=== PATIENT | male | born 1965 | race Caucasian/White ===

== ENCOUNTER 2023-08-25 16:16 | Emergency (ER) | payer OTHER, SELFPAY ==
--- NOTE | ~2023-08-25 | XR_ITS ---
EXAMINATION: XR FINGER, LEFT CLINICAL INFORMATION: Fifth digit pain. Swelling. Question foreign body. COMPARISON: None available. TECHNIQUE: 3 radiographs of the left fifth digit. FINDINGS: There is no fracture or dislocation. Joint spaces appear maintained. The soft tissue overlying the distal phalanx of the fifth digit appear mildly swollen. No radiopaque foreign object is identified within the soft tissues. XR/XR finger LT min 2V IMPRESSION: No fracture or dislocation. No radiopaque foreign object.
[2023-08-25 16:39] VITALS: BP 164/87; PULSE 68; RESP 18; TEMP 36.1; O2SAT 96; BMI 31.3
--- NOTE | 2023-08-25 16:43 | ED.GENADULT ---
HPI - General Adult General Chief complaint: Extremity Problem Stated complaint: finger issue Time Seen by Provider: 08/25/23 19:58 Source: patient Mode of arrival: ambulatory Limitations: no limitations History of Present Illness HPI narrative: Patient is a 58-year-old male, right-hand dominant, who presents emergency department for evaluation of a lesion to his left 5th digit along the finger pad. Reports onset of pain weeks ago. 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 He at 1st had a very small punctate lesion. It has continued to grow in size since then, it is very painful with a throbbing sensation. He reports that each time that the lesion opens if leads, does not stop bleeding until pressure is applied. He denies any pus-like drainage from area. He is able to flex and extend the digit without difficulty though it does increase pain. He denies any additional skin lesions or wounds Related Data Previous Rx's ?Medication ?Instructions ?Recorded cephalexin 500 mg capsule 500 mg PO TID 7 days #21 caps 08/25/23 Allergies Allergy/AdvReac Type Severity Reaction Status Date / Time No Known Allergies Allergy Verified 08/25/23 16:41 Review of Systems Review of Systems: Yes all other systems are reviewed and are negative [facility] Past Medical History Attestation statement: The following information was validated with the patient. Source: old records reviewed Social History Social History Advance Directives: No Advance Directives Information Provided: No Do you have a plan to hurt others: No Plan Physical Exam ED Vital Signs: Vital Signs - 24 hr 08/25/23 16:39 08/25/23 20:20 08/25/23 22:24 Temperature 97 F 98.3 F 98.1 F Pulse Rate 68 62 61 Respiratory Rate 18 20 16 Blood Pressure 164/87 H 139/96 H 147/96 H Pulse Oximetry 96 96 97 Oxygen Delivery Method Room Air Room Air Room Air 08/25/23 22:24 Temperature 98.1 F Pulse Rate 61 Respiratory Rate 16 Blood Pressure 147/96 H Pulse Oximetry 97 Oxygen Delivery Method Room Air BMI result Body Mass Index 31.3 Appearance: Alert.?Oriented to person, place and time. No acute distress.?Normal affect. Neck: Normal inspection.? Neck supple.?? CVS: Heart sounds normal. Normal heart rate and rhythm.? Pulses normal.?? Respiratory: No respiratory distress.? Lung sounds clear to auscultation bilaterally?? Skin: Skin warm and dry.? Normal skin color.? Left 5th digit granuloma Extremities: No extremity edema Neuro: Moves all extremities spontaneously. Sensation intact bilaterally. Ambulates with normal steady gait. Course Course Course Narrative: RME performed by Vilma Coleman PA-C. Patient is a 58 year old assigned male at presenting to the emergency department with left 5th finger issues. Patient states he has had a growth that is worsening to his left 5th finger and it bleeds whenever there isn't direct pressure on it. Patient states he went to an urgent care and they declined to do anything about it. Detailed physical exam and review of systems are deferred to the senior clinician. Patient placed back in the waiting room pending room availability. Medications Administered Discontinued Medications Generic Name Dose Route Start Last Admin Trade Name Freq PRN Reason Stop Dose Admin Cephalexin HCl 500 mg 08/25/23 21:07 08/25/23 21:15 Cephalexin 500 Mg Capsule PO 08/25/23 21:08 500 mg ONCE ONE Administration Diphtheria/Tetanus/Acell Pertussis 0.5 ml 08/25/23 21:07 08/25/23 21:15 Diphth,Pertus(Acell),Tet Adult 0.5 Ml Syringe IM 08/25/23 21:08 0.5 ml .ONCE ONE Administration Medical Decision Making Medical Decision Making MDM Narrative: Patient is a 58-year-old male who presents emergency department for evaluation of a lesion to the left 5th digit long finger pad. Examination is most concerning for a granuloma based on history and physical exam. XR was obtained and is without evidence of acute fracture or retained foreign body. His tetanus vaccination was updated. He has provided with a first dose of antibiotic and started on a prophylactic course of antibiotics. Advised outpatient follow-up with hand specialist. Discussed worrisome signs and symptoms that would warrant re-evaluation in the emergency department. All questions answered. Stable for discharge Differential Diagnosis Differential Diagnoses: The differential diagnosis associated with the presentation includes (Granuloma, hemangioma, abscess) Independent Interpretation I performed an independent interpretation of an: Plain X-Ray (No foreign body or fracture) Radiology Impression Discussion of test interpretation with radiology: I have reviewed the radiologist's reading. Radiologist Impression: XR/XR finger LT min 2V IMPRESSION: No fracture or dislocation. No radiopaque foreign object. Prescription Management I considered prescription management with: Pain Medication and Antibiotic Discharge Plan Discharge Clinical Impression: Lesion of finger Patient Disposition: Home, Self-Care Additional Instructions: As discussed, I recommend that you follow-up with the hand specialist, Dr. Geiger. I have provided her contact information, please call their office first thing tomorrow morning to arrange for follow-up. X-ray does not show any evidence of a radiopaque foreign body in the finger or abnormality to the bone. The appearance of this lesion today is concerning for a granuloma A course of prophylactic antibiotics has been prescribed, please complete the entire course unless advised to discontinue by a doctor Prescriptions: New cephalexin 500 mg capsule 500 mg PO TID 7 Days Qty: 21 0RF Referrals: Jonny Jorgensen III, MD [Primary Care Provider] - Haven Geiger MD [Physician] - Interventions: ED Discharge Assessment Last Done: 08/25/23 22:24 Discharge Date/Time: 08/25/23 22:25 Print Language: Indonesian
[2023-08-25 20:20] VITALS: BP 139/96; PULSE 62; RESP 20; TEMP 36.8; O2SAT 96
[2023-08-25] MEDS: cephALEXin 500 MG CAPSULE PO (21:15)
[2023-08-25] MEDS: Diphth,Pertus(ACell),Tet Adult 0.5 ML SYRINGE IM (21:15)
[2023-08-25 22:24] VITALS: BP 147/96; PULSE 61; RESP 16; TEMP 36.7; O2SAT 97
== END 2023-08-25 22:25 | disposition home or self-care (01) ==
PROVIDERS: Emergency Provider Emergency Medicine; PCP Internal Medicine
DX: S61.217A Laceration without foreign body of left little finger without damage to nail, initial encounter (principal); M79.645 Pain in left finger(s); W26.8XXA Contact with other sharp object(s), not elsewhere classified, initial encounter; Y93.89 Activity, other specified; Y92.89 Other specified places as the place of occurrence of the external cause; Y99.8 Other external cause status; Z23 Encounter for immunization
CPT/HCPCS: 73140; 90471; 90715; 99283; 99284

== ENCOUNTER 2023-09-08 10:56 | Outpatient (REF) | payer OTHER, SELFPAY ==
--- NOTE | ~2023-09-08 | XR_ITS ---
EXAMINATION: XR HAND, LEFT CLINICAL INFORMATION: Pain in the left hand. Attention small finger. COMPARISON: X-rays of the left hand in small finger 08/25/2023 TECHNIQUE: PA, lateral, and oblique views of the left hand. FINDINGS: The bones and soft tissues are normal. No fracture. Alignment is anatomic. Joint spaces are maintained. No erosions or soft tissue calcifications. XR/XR hand LT min 3V IMPRESSION: Normal left hand.
== END 2023-09-08 10:57 | disposition home or self-care (01) ==
LOC: HO.HOSX 10:56
PROVIDERS: PCP Internal Medicine
DX: M79.642 Pain in left hand (principal); R22.32 Localized swelling, mass and lump, left upper limb
CPT/HCPCS: 73130

== ENCOUNTER 2023-09-08 10:56 | Outpatient (AMB) | payer OTHER, SELFPAY ==
--- NOTE | 2023-09-08 11:02 | A.OFFVIS_ITS ---
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 Patient reports lesion has been there for approximately 5 weeks. Reports size increase and discoloration. Denies itchiness or irritation. Patient states he has been changing band aids throughout the day. Patient also reports it bleeds if pressure is applied. 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 The patient reports that he was previously evaluated at both a walk-in clinic in the emergency department, where he reports that providers were not comfortable with any potential drainage of the area, and he was referred to a hand specialist. Today, the patient reports that the lesion has continued to grow, and still bleeds whenever it is touched. The patient reports serous discharge from the lesion as well, but no pus or purulence. He reports pain in the area of the lesion. No other acute concerns or complaints at this time. REPLACED BY [facility] Social History (Updated 09/08/23 @ 11:05 by LAVERN Thomas) Current occupational status: employed Current occupation: right handed, landscaping Review of Systems Const All systems reviewed & are unremarkable except as noted in HPI and below Physical Exam Vital Signs: BMI result Body Mass Index 31.1 Extrem Other: Patient is alert, oriented, and in no acute distress. Neuro: Median, ulnar, radial nerves motor and sensory intact and sensation is normal to the tips of all digits. Vascular: Cap refill brisk Pain: Patient reports mild to moderate tenderness to palpation of the distal phalanx of the left small finger about the lesion. No other tenderness to palpation ROM: Patient is able to make a closed fist Skin: Approximately 1 cm circular lesion noted on the volar aspect of the distal small finger, lesion is red with a surrounding area of macerated-appearing skin. General: No ecchymosis, erythema, or evidence of infection. Psych: Appears grossly normal Affect normal Attitude cooperative Results Reviewed Results Reviewed: X-rays obtained in the office today and independently reviewed by me, Gonzalo Singh PA-C, demonstrate soft tissue prominence of the volar aspect of the distal L small finger. No fracture or acute bony abnormality of the left hand, no evidence of osteomyelitis. Assessment & Plan Assessment & Plan (1) Subcutaneous mass of finger of left hand: Code(s): R22.32 - Localized swelling, mass and lump, left upper limb Category: Medical Plan 1. Cutaneous mass of left small finger Date of injury approximately 5 weeks ago Mass is growing, but there is currently no evidence of active infection (erythema, purulence, etc) Patient is informed that he should be seen with Dr. Geiger for evaluation of this condition, and discussion of treatment options Patient is amenable to this plan Patient is advised to keep the area clean and dry in the interim. Patient will follow up on Friday with myself, with Dr. Geiger in office, for evaluation discussion of treatment options Orders: Orders XR hand LT min 3V Today M79.642 - Pain in left hand Medications: Discontinued cephalexin Discontinued Reason: Patient Completed Course 500 mg PO TID 7 days 21 caps 0RF Coding Level of Care Code New Pt Level 3 (99317) Diagnoses Subcutaneous mass of finger of left hand R22.32
[2023-09-08 11:04] VITALS: BMI 31.1
== END 2023-09-08 12:16 | disposition home or self-care (01) ==
PROVIDERS: PCP Internal Medicine
DX: R22.32 Localized swelling, mass and lump, left upper limb (principal)
CPT/HCPCS: 99203

== ENCOUNTER 2023-09-10 14:23 | Outpatient (AMB) | payer OTHER, SELFPAY ==
--- NOTE | 2023-09-10 14:26 | A.OFFVIS_ITS ---
Intake Visit Reasons: OV-lesion to his left 5th digit-F/U Intake Note: Bebeto is a 58 year old right hand dominant male who presents today as a new patient for lesion on the left 5th digit. Patient reports he is still bleeding and it is still a little purple. Denies numbness and tingling. He mentions that he has pain sound the lesion. Allergies No Known Allergies Allergy (Verified 09/10/23 14:28) HPI HPI OV-lesion to his left 5th digit-F/U: Details: Patient is a 58-year-old male who presents for evaluation of lesion on his left small finger, present for approximately 5 weeks. 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 The patient reports that he was previously evaluated at both a walk-in clinic in the emergency department, where he reports that providers were not comfortable with any potential drainage of the area, and he was referred to a hand specialist. Today, the patient reports that the lesion has continued to grow, and still bleeds whenever it is touched. The patient reports serous discharge from the lesion as well, but no pus or purulence. He reports pain in the area of the lesion. No other acute concerns or complaints at this time. Patient presents today for repeat evaluation with Dr. Geiger in the office to determine treatment course. [facility] Social History (Updated 09/10/23 @ 14:28 by Rno Oliva) Alcohol intake: current Alcohol intake frequency: holidays/special occasions only Patient Tobacco Use Status: Never used Tobacco Current occupational status: employed Current occupation: right handed, landscaping Review of Systems Const All systems reviewed & are unremarkable except as noted in HPI and below Physical Exam Extrem Other: Patient is alert, oriented, and in no acute distress. Neuro: Median, ulnar, radial nerves motor and sensory intact and sensation is normal to the tips of all digits. Vascular: Cap refill brisk Pain: Patient reports mild to moderate tenderness to palpation of the distal phalanx of the left small finger about the lesion. No other tenderness to palpation ROM: Patient is able to make a closed fist Skin: Approximately 1 cm circular lesion noted on the volar aspect of the distal small finger, lesion is red with a surrounding area of macerated-appearing skin. General: No ecchymosis, erythema, or evidence of infection. Psych: Appears grossly normal Affect normal Attitude cooperative Assessment & Plan Assessment & Plan (1) Pyogenic granuloma: Code(s): L98.0 - Pyogenic granuloma Category: Medical (2) Subcutaneous mass of finger of left hand: Code(s): R22.32 - Localized swelling, mass and lump, left upper limb Category: Medical Plan 1. Pyogenic granuloma of left small finger After consultation and discussion with Dr. Geiger, who was available to see the patient in the office today, a joint treatment plan was formed I educated the patient about the condition. I discussed both operative and nonoperative treatment options. The patient would like to proceed with surgery. The risks and benefits of operative treatment were discussed with the patient and the patient wishes to proceed with surgery. These risks include, but are not limited to, risk of damage to blood vessels, nerves, tendons, infection, recurrence, incomplete relief of preoperative symptoms, persistent pain, possible need for further surgery, and the risks associated with regional blocks and/or anesthesia. Plan is to take the patient to the operating room on 09/15/2023, for the following procedures: 1. Excision of pyogenic granuloma left small finger All of the preoperative paperwork including the consent was discussed today. All of the patient's questions were answered in the clinic today. The patient understands that they will be in contact with our surgical resident to discuss scheduling their procedure. Patient denies diabetes, blood thinners, asthma, heart issues, lung issues, kidney issues, or current smoking. Coding Level of Care Code Est Pt Level 4 (52088) Diagnoses Pyogenic granuloma L98.0 Subcutaneous mass of finger of left hand R22.32
== END 2023-09-10 15:12 | disposition home or self-care (01) ==
PROVIDERS: PCP Internal Medicine
DX: L98.0 Pyogenic granuloma (principal); R22.32 Localized swelling, mass and lump, left upper limb
CPT/HCPCS: 99214

== ENCOUNTER → 2023-09-10 14:23 | Outpatient (BNVA) | payer OTHER, SELFPAY | PROVIDERS: PCP Internal Medicine ==

== ENCOUNTER 2023-09-15 09:25 | Day surgery (SDC) | payer OTHER, SELFPAY ==
--- NOTE | 2023-09-11 15:12 | HO.ANESPROP2 ---
Documented by User: Sheyla Syed NP 09/11/23 15:13 HPI - Anesthesia Eval Consult details Narrative: 58yo M for Left Small Finger Soft Tissue Excision Mass PMFSH Active Problems Active Problems: All Active Problems Subcutaneous mass of finger of left hand (Acute) Social History Social History Alcohol intake: current Alcohol intake frequency: holidays/special occasions only Patient Tobacco Use Status: Never used Tobacco Use of substances other than those prescribed or required for medical reasons: No Are you DNR?: No Advance Directives: No Advance Directives Information Provided: Yes Current occupational status: employed Current occupation: right handed, landscaping Meds Allergies Allergy/AdvReac Type Severity Reaction Status Date / Time No Known Allergies Allergy Verified 09/10/23 14:28 Home Medications ?Medication ?Instructions ?Recorded ?Confirmed ?Last Taken ?Type No Known Home Meds 09/10/23 09/10/23 Unknown History Assessment and Plan Assessment Anesthesia Assessment: Chart Reviewed Documented by User: Chantel Lou MD 09/15/23 10:43 PMFSH Family History Family history of problems with anesthesia: No Surgical History History of Problems with Anesthesia: No Social History Social History Alcohol intake: current Alcohol intake frequency: holidays/special occasions only Patient Tobacco Use Status: Never used Tobacco Use of substances other than those prescribed or required for medical reasons: No Are you DNR?: No Advance Directives: No Advance Directives Information Provided: Yes Current occupational status: employed Current occupation: right handed, landscaping Meds Allergies Allergy/AdvReac Type Severity Reaction Status Date / Time No Known Allergies Allergy Verified 09/10/23 14:28 Home Medications ?Medication ?Instructions ?Recorded ?Confirmed ?Last Taken ?Type No Known Home Meds 09/10/23 09/10/23 Unknown History Exam Airway Mallampati Class: II TM Dist: >3cm Neck ROM: Full Heart: rrr Lungs: cta Assessment and Plan Assessment Anesthesia Assessment: Anesthesia Plan Discussed Final Anesthetic Review Family History of Problems with Anesthesia: No History of Problems with Anesthesia: No NPO: Yes ASA Class: I Final Preanesthetic Review: No Changes in Pt Med Stat, Meds/Allgs Chart Reviewed, Consent Obtained/Reviewed and Anes Risks/Benef Reviewed Patient Risk: Low Procedure Risk: Low Anesthetic Plan Anesthetic Plan: MAC: Disposition: Standard PACU
--- NOTE | 2023-09-15 09:24 | MHC.SHP ---
Pre-Procedural Eval Section A - 24 Hr Update-Section A only Date of Service: 09/15/23 The patient is an INPATIENT: No Changes since office visit: No Cold of Flu in the past 2 weeks, No New Medical Problems, No Changes in Medication and No Patient answered all questions The patient has been examined within 24 hours of the surgical procedure. The History & Physical has been completed within 30 days and I have reviewed it.: Yes Section B - Complete if H&P > 30 days Chief Complaint: Localized swelling, mass and lump, left upper limb Allergies: Allergies Allergy/AdvReac Type Severity Reaction Status Date / Time No Known Allergies Allergy Verified 09/10/23 14:28 Plan I have reviewed the history and physical and performed a pertinent physical examination on my patient. No changes have occurred unless specified. Time Spent With Patient Time: Total time managing care of this patient today ____ minutes.
--- NOTE | 2023-09-15 09:25 | W.PM.OPN ---
Operative Note Operative Note Date of Service: 09/15/23 Narrative: Operative Note Narrative: Preop diagnosis: 1. Left small finger soft tissue mass, consistent with a pyogenic granuloma Postop diagnosis: Same Procedure: 1. Left small finger soft tissue mass excisional biopsy 2. Left ulnar nerve block Surgeon: Haven Geiger MD Nail Technician Teacher: None Anesthesia: Digital block plus MAC Findings: [place]man friable soft tissue mass measuring about a cm in diameter most consistent with a pyogenic granuloma perforating through the skin of the pad of the left small finger. This left an approximately 1 cm diameter wound where the mass push through the skin. There is already evidence of granulation tissue and early epithelialization of this wound bed. Implants: None Tourniquet time: Finger tourniquet applied for fewer than 30 minutes EBL: 5.0 ml Specimen: Left small finger soft tissue mass sent for histopathology Drains: None Complications: None Disposition: Brought to the recovery room in stable condition Plan: Follow-up in 10-14 days for wound check, suture removal and to check pathology Indications: The patient is a 58 year old man with a left small finger soft tissue mass most consistent with a pyogenic granuloma . The risks and benefits of operative treatment, including but not limited to risk of damage to blood vessels, nerves, tendons, infection, recurrence, persistent pain or numbness, incomplete resolution of preoperative symptoms, or need for further surgery were discussed with the patient and they wished to proceed with surgery. Procedure: Once consent was obtained patient was brought back to the operating suite and placed in the operating table in a supine position. . Perioperative antibiotics and anesthesia was administered by the anesthesia team. I performed a digital block of the small finger in the operating room using some 1% lidocaine with epinephrine. A finger tourniquet was applied to the base of the left small finger for fewer than 30 minutes. Once assured that it had a good block I used a [place] elevator and some iris scissors to carefully dissect about the 1 cm diameter pink friable mass in the pad of the left small finger. There was a small feeder vessel which was identified and cauterized using bipolar electrocautery. The wound itself was pretty good size measuring almost 1 cm in diameter, where the mass push its way through the skin. It looks like he has had early granulation tissue and already started to have some epithelialization in the proximal aspect of wound. I did debride the circumferential superficial skin at the edges of the wound using tenotomy scissors. The wound was then copiously irrigated with normal saline. At this point the finger tourniquet was removed and hemostasis obtained with a brief period of local pressure and bipolar electrocautery. The wound was again copiously irrigated with normal saline. No sutures were placed. Again he already appears to have early epithelialization of the wound bed. I believe this will be best treated with local wound care. A sterile dressing was applied. The patient appears to have tolerated the procedure well and with no complications. All digits were well vascularized conclusion of the case.
[2023-09-15 09:46] VITALS: BP 155/88; PULSE 62; RESP 16; TEMP 37.1; O2SAT 96; BMI 30.8
[2023-09-15] MEDS: Lactated Ringers 1,000 ML 100 ML IVCONT (10:02)
[2023-09-15 12:00] VITALS: BP 156/75; PULSE 60; RESP 18; TEMP 36.4; O2SAT 95
[2023-09-15 12:15] VITALS: BP 146/85; PULSE 56; RESP 18; O2SAT 95
== END 2023-09-15 12:58 | disposition home or self-care (01) ==
PROVIDERS: PCP Internal Medicine; Visit Provider Orthopaedic Surgery
PROC: (CPT 11421; principal; 2023-09-15 10:50)
DX: D18.01 Hemangioma of skin and subcutaneous tissue (principal); M79.645 Pain in left finger(s); L98.0 Pyogenic granuloma
CPT/HCPCS: 11421; 88307; J0131; J0690; J2250; J2704; J3010

== ENCOUNTER → 2023-09-15 09:25 | Outpatient (BNV) | payer OTHER, SELFPAY | PROVIDERS: PCP Internal Medicine; Visit Provider Orthopaedic Surgery | DX: R22.32 Localized swelling, mass and lump, left upper limb (principal); L98.0 Pyogenic granuloma | CPT/HCPCS: 26115 ==

== ENCOUNTER 2023-09-23 14:26 | Outpatient (AMB) | payer OTHER, SELFPAY ==
--- NOTE | 2023-09-23 14:30 | A.OFFVIS_ITS ---
Vital Signs 09/23/23 14:33 Handedness Right Intake Visit Reasons: PO/wound check - LT 5th mass exc 09/15/23 AR Intake Note: Bebeto is a 58 year old right hand dominant male who presents today post operatively s/p left 5th mass excision done 09/15/[address] Geiger. Patient reports he has throbbing pain that is intermittent. He assumes this is normal due to the surgery being recent. He says if he lays his hand a certain way he does get mild numbness. He has been taking ibuprofen to reduce swelling. He claims there was a biopsy done on mass removed and he would like to discuss the findings. Dressing removed in office, site of excison appears macerated. Allergies No Known Allergies Allergy (Verified 09/23/23 14:36) HPI HPI PO/wound check - LT 5th mass exc 09/15/23 AR: Details: Patient is a 58-year-old male who presents for postoperative evaluation and wound check of left small finger pyogenic granuloma excision, DOS 09/15/[address] Geiger. Today, the patient reports that he is feeling much better, and then he does not have any significant pain at the surgery site. The patient in quires as to the findings on the surgical specimen, stating that his is very concerned that this mass may have been cancerous. The patient reports no increased pain, no increased swelling, no increased erythema, or any discharge from the area. The patient does report that he feels his left small finger has become slightly stiff due to being in the dressing. No other acute complaints or concerns at this time. [facility] Medical History (Updated 09/23/23 @ 14:36 by SOCO Tran) Subcutaneous mass of finger of left hand Social History Alcohol intake: current Alcohol intake frequency: holidays/special occasions only Patient Tobacco Use Status: Never used Tobacco Current occupational status: employed Current occupation: right handed, landscaping Review of Systems Const All systems reviewed & are unremarkable except as noted in HPI and below Physical Exam Extrem Other: Patient is alert, oriented, and in no acute distress. Neuro: Median, ulnar, radial nerves motor and sensory intact and sensation is normal to the tips of all digits. Vascular: Cap refill brisk Pain: Patient reports no tenderness to palpation about the left small finger ROM: With encouragement, patient is able to make a closed fist and extend fingers fully Skin: Surgery site on the distal aspect of the left small finger appears to be healing well Granulation tissue with new skin growth noted at the surgery site No active discharge from the surgery site noted General: No ecchymosis, erythema, or evidence of infection. Psych: Appears grossly normal Affect normal Attitude cooperative Results Reviewed Results Reviewed: Diagnosis Soft tissue, left finger mass, excision: Lobular capillary hemangioma; negative for malignancy Assessment & Plan Assessment & Plan (1) Pyogenic granuloma: Code(s): L98.0 - Pyogenic granuloma Category: Medical Plan 1. Pyogenic granuloma of left small finger status post excision DOS 09/15/2023 Patient was discussed with Dr. Geiger, who was available to see the patient with me in clinic today: Patient appears to be recovering well postoperatively Patient is educated about the typical recovery course Patient is educated that he no longer is required to be in the large dressing provided at DOS, but should still keep the surgery site covered with daytime activities with smaller dressings of Telfa and Coban Patient is educated that while he is at home resting, he can leave the surgery site open to air with a small bit of antibiotic ointment applied, as long as there is no potential contamination at this time (dog or cat licking the incision site, etc.) Patient is educated that he should start with [id number] exercises, namely bringing his left hand to a full closed fist, holding for 10 seconds, and then fully extending, in order to combat early stiffness Patient is educated that he can gently wash the surgery site with soap and wate r, but should avoid any submersion or dirty activities, such as fishing or gardening, for the next 3 weeks Patient is amenable to this plan Patient will follow-up in 3 weeks for reassessment, sooner with any acute concerns Coding Level of Care Code Global (79108) Diagnoses Pyogenic granuloma L98.0
== END 2023-09-23 15:03 | disposition home or self-care (01) ==
PROVIDERS: PCP Internal Medicine
DX: L98.0 Pyogenic granuloma (principal)
CPT/HCPCS: 99024

== ENCOUNTER → 2023-09-23 14:26 | Outpatient (BNVA) | payer OTHER, SELFPAY | PROVIDERS: PCP Internal Medicine ==

== ENCOUNTER 2023-10-14 15:00 | Outpatient (AMB) | payer OTHER, SELFPAY ==
--- NOTE | 2023-10-14 15:05 | A.OFFVIS_ITS ---
Intake Visit Reasons: PO - LT 5th mass exc 09/15/23 AR Intake Note: Bebeto is a 58 year old right hand dominant male who presents today post operatively for a wound check s/p left 5th mass excision done 09/15/[address] Geiger. Patient reports his pinky is doing well. A few weeks ago it was still open but since then it sealed up. His concern is a lump where the removal was, he is wondering if the mass is growing back or if this is just scar tissue. Allergies No Known Allergies Allergy (Verified 10/14/23 15:08) HPI HPI PO - LT 5th mass exc 09/15/23 AR: Details: Patient is a 58-year-old male who presents for postop evaluation of left small finger pyogenic granuloma excision, DOS 09/15/[address] Geiger. Today, the patient reports that he is doing very well, and then he has no pain about the surgery site. Patient reports that he does have concern that there appears to be a small, firm area in the area of the incision, but that this area is not red, inflamed, bleeding, and does not appear to be a recurrence of the pyogenic granuloma. Patient reports no discharge from the area, and then the incision is closed well Patient denies any numbness or tingling in the left small finger. No other acute complaints or concerns this time [facility] Medical History Subcutaneous mass of finger of left hand Social History Alcohol intake: current Alcohol intake frequency: holidays/special occasions only Patient Tobacco Use Status: Never used Tobacco Current occupational status: employed Current occupation: right handed, landscaping Review of Systems Const All systems reviewed & are unremarkable except as noted in HPI and below Physical Exam Extrem Other: Patient is alert, oriented, and in no acute distress. Neuro: Patient reports normal sensation of the tips of all digits of the left hand, primarily the small finger Vascular: Cap refill brisk Pain: No tenderness to palpation about the left small finger Small scar has begun to form on the left small finger at the incision site ROM: patient is able to make a closed fist and extend fingers fully Skin: Surgery site on the distal aspect of the left small finger closed well-healed No active discharge from the surgery site noted General: No ecchymosis, erythema, or evidence of infection. Psych: Appears grossly normal Affect normal Attitude cooperative Assessment & Plan Assessment & Plan (1) Pyogenic granuloma: Code(s): L98.0 - Pyogenic granuloma Category: Medical (2) Subcutaneous mass of finger of left hand: Code(s): R22.32 - Localized swelling, mass and lump, left upper limb Category: Medical Plan 1. Pyogenic granuloma of left small finger status post excision DOS 09/15/2023 Patient appears to be recovering well from his surgery Patient is educated about the typical recovery course At this time, patient is reassured that this small area of hard shoe he has noticed on the left small finger is likely scar formation at the incision site Patient is reassured by this Patient is informed that he is recovering very very well from his procedure, and at this point he can begin return to normal function in the left upper extremity Patient is amenable to this plan Patient will follow-up as needed with any acute concerns Coding Level of Care Code Global (25537) Diagnoses Pyogenic granuloma L98.0 Subcutaneous mass of finger of left hand R22.32
== END 2023-10-14 15:26 | disposition home or self-care (01) ==
PROVIDERS: PCP Internal Medicine
DX: L98.0 Pyogenic granuloma (principal); R22.32 Localized swelling, mass and lump, left upper limb
CPT/HCPCS: 99024

== ENCOUNTER → 2023-10-14 15:00 | Outpatient (BNVA) | payer OTHER, SELFPAY | PROVIDERS: PCP Internal Medicine ==

== ENCOUNTER 2023-11-18 15:02 | Outpatient (AMB) | payer OTHER, SELFPAY ==
--- NOTE | 2023-11-18 15:21 | A.OFFVIS_ITS ---
Intake Visit Reasons: PO - LT 5th mass exc 09/15/23 AR Intake Note: Bebeto is a 58 year old right hand dominant male who presents today post operatively s/p left 5th mass excision done 09/15/[address] Geiger. Pt states he has a little hard bump on the outer part of his 5th digit. Pt states that is how the last mass started. Pt denies any pain except when he hits his finger on the bump then he feels a stinging pain. Allergies No Known Allergies Allergy (Verified 11/18/23 15:21) HPI HPI PO - LT 5th mass exc 09/15/23 AR: Details: Patient is a 58-year-old male who presents for follow-up evaluation status post left small finger pyogenic granuloma excision, DOS 09/15/2023. Today, the patient reports that he is still feeling much better, but that he noticed a small bump at the edge of the surgical scar that hurts when he ?bangs it on something?, and the patient states he wanted to have this evaluated to ensure that it was not a recurrence of the pyogenic granuloma. Patient denies any bleeding or other discharge from the area. Patient denies any numbness or tingling in the left hand. No other acute complaints or concerns at this time. [facility] Medical History Subcutaneous mass of finger of left hand Social History Alcohol intake: current Alcohol intake frequency: holidays/special occasions only Patient Tobacco Use Status: Never used Tobacco Current occupational status: employed Current occupation: right handed, landscaping Physical Exam Extrem Other: Patient is alert, oriented, and in no acute distress. Neuro: Patient reports normal sensation of the tips of all digits of the left hand, primarily the small finger Vascular: Cap refill brisk Pain: No tenderness to palpation about the left small finger Small scar has begun to form on the left small finger at the incision site ROM: patient is able to make a closed fist and extend fingers fully Skin: Surgery site on the distal aspect of the left small finger closed well-healed No active discharge from the surgery site noted There is noted to be a very small bump at the ulnar edge of the surgical scar, that the patient reports is nontender to palpation General: No ecchymosis, erythema, or evidence of infection. Psych: Appears grossly normal Affect normal Attitude cooperative Assessment & Plan Assessment & Plan (1) Pyogenic granuloma: Code(s): L98.0 - Pyogenic granuloma Category: Medical (2) Subcutaneous mass of finger of left hand: Code(s): R22.32 - Localized swelling, mass and lump, left upper limb Category: Medical Plan 1. Pyogenic granuloma of left small finger status post excision DOS 09/15/2023 Patient appears to be recovering well from his surgery Patient is educated about the typical recovery course At this time, patient is reassured that this small area of hard shoe he has noticed on the left small finger is likely scar formation at the incision site Patient is reassured by this However, patient is educated that there is a risk of recurrence with pyogenic granulomas, so he should call our office for another appointment if he notices anything appearing as if it was going to come through the skin, any discharge from the area, or any other worrisome or concerning signs. Patient is informed that he is recovering very very well from his procedure, and at this point he can begin return to normal function in the left upper extremity Patient is amenable to this plan Patient will follow-up as needed with any acute concerns Coding Level of Care Code Global (41158) Diagnoses Pyogenic granuloma L98.0 Subcutaneous mass of finger of left hand R22.32
== END 2023-11-18 15:43 | disposition home or self-care (01) ==
PROVIDERS: PCP Internal Medicine
DX: L98.0 Pyogenic granuloma (principal); R22.32 Localized swelling, mass and lump, left upper limb
CPT/HCPCS: 99024

== ENCOUNTER → 2023-11-18 15:02 | Outpatient (BNVA) | payer OTHER, SELFPAY | PROVIDERS: PCP Internal Medicine ==